=== PATIENT | male | born 1970 | race Caucasian/White ===

== ENCOUNTER 2016-11-23 14:04 | Emergency (ER) | payer SELFPAY ==
[2016-11-23] MEDS ORDERED: NORCO 10/325 PO ONE (17:01)
[2016-11-23] MEDS ORDERED: XYLOCAINE 1% 20 mL INFILTRATI ONE (17:02)
[2016-11-23] MEDS ORDERED: NACL 0.9% 500 ML IR ONE (17:10)
--- NOTE | 2016-11-23 18:04 | XRay Report ---
FINAL REPORT EXAM: XR FINGER(S) 2+V LT HISTORY: laceration TECHNIQUE: Left 1st finger three views PRIORS: None. FINDINGS: There is acute traumatic intra-articular comminuted fracture through the distal aspect middle phalanx 2nd digit with displacement of small fracture fragments. There also fracture through the adjacent base of the distal phalanx with intra-articular extension. There is some lucency seen through the distal aspect of the proximal phalanx of the thumb which may reflect overlap of bony structures. Please correlate clinically. This is only seen on the AP view. IMPRESSION: Acute traumatic intra-articular fracture through the base of the distal phalanx 2nd digit and the distal aspect of the middle phalanx with displaced fragments Lucency seen on the AP view distal aspect of the proximal phalanx of the thumb. May reflect overlap of bony structures. Please correlate with any suspicious clinical findings.
[2016-11-23] MEDS ORDERED: TRIPLE ANTIBIOTIC TP ONE (18:51)
[2016-11-23 22:33] VITALS: BP 122/88
--- NOTE | 2016-11-24 11:07 | Emergency Department Report ---
Entered by SUSAN PETERSEN, acting as scribe for RAYNA SAINI PA. 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 Patient reports he was remodeling a house when a circular saw cut his left finger. Patient reports active bleeding, but denies fever, chills, dizziness, chest pain, SOB, numbness or tingling to extremity. Patient reports pain to extremity with movement. Patient used a bandage PSYCHIATRIC AIDE. Patient is UTD on tetanus shot. -: Sudden, This afternoon Location: other (left index finger) Extremity Location: Left: Hand (left index finger) Place: outdoors Patient Tetanus UTD: Yes (last 3 years) Context: accidental, sharp object use Associated Symptoms: pain. denies: loss of feeling/numbness, suspect foreign body present, unable to move injured part, weakness followed by dizziness, nausea/vomiting, fever Treatments Prior to Arrival: bandage - Related Data Previous Rx's Medication Instructions Recorded Last Taken Type Cephalexin [Keflex] 500 mg PO Q12HR #14 cap 11/23/16 Unknown Rx Ibuprofen [Motrin] 800 mg PO Q8HR #21 tablet 11/23/16 Unknown Rx Allergies Allergy/AdvReac Type Severity Reaction Status Date / Time No Known Allergies Allergy Unverified 11/23/16 14:09 ED Review of Systems Comment: All other systems reviewed and negative Constitutional: denies: chills, fever, weakness Eyes: denies: eye pain, eye discharge, vision change ENT: denies: ear pain, throat pain Respiratory: denies: cough, shortness of breath, wheezing Cardiovascular: denies: chest pain, palpitations Endocrine: no symptoms reported Gastrointestinal: denies: abdominal pain, nausea, vomiting, diarrhea Genitourinary: denies: urgency, dysuria Musculoskeletal: denies: back pain, joint swelling, arthralgia Skin: other (laceration to left index finger). denies: rash, lesions Neurological: denies: headache, weakness, numbness, paresthesias, confusion, abnormal gait, vertigo Psychiatric: denies: anxiety, depression Hematological/Lymphatic: denies: easy bleeding, easy bruising ED Past Medical Hx - Past Medical History Previous Medical History?: No - Surgical History Past Surgical History?: No - Social History Smoking Status: Never Smoker Substance Use Type: None - Medications Home Medications: Home Medications Medication Instructions Recorded Confirmed Last Taken Type Cephalexin [Keflex] 500 mg PO Q12HR #14 cap 11/23/16 Unknown Rx Ibuprofen [Motrin] 800 mg PO Q8HR #21 tablet 11/23/16 Unknown Rx ED Physical Exam - General Limitations: Language Barrier General appearance: alert, in no apparent distress - Head Head exam: Present: atraumatic, normocephalic - Eye Eye exam: Present: normal appearance - ENT ENT exam: Present: mucous membranes moist - Neck Neck exam: Present: normal inspection, full ROM. Absent: tenderness - Respiratory Respiratory exam: Present: normal lung sounds bilaterally. Absent: respiratory distress, wheezes, rales, rhonchi, stridor - Cardiovascular Cardiovascular Exam: Present: regular rate, normal rhythm, normal heart sounds - GI/Abdominal GI/Abdominal exam: Present: soft, normal bowel sounds. Absent: distended, tenderness, guarding, rebound, rigid - Rectal Rectal exam: Present: deferred - Extremities Exam Extremities exam: Present: normal inspection, full ROM - Back Exam Back exam: Present: normal inspection, full ROM - Neurological Exam Neurological exam: Present: alert, oriented X3, normal gait - Psychiatric Psychiatric exam: Present: normal affect, normal mood - Skin Skin exam: Present: warm, dry, normal color, other (left distal index finger laceration to dorsal and palmar side). Absent: rash ED Course Vital Signs 11/23/16 11/23/16 14:09 19:35 Temperature 97.6 F Pulse Rate 79 66 Respiratory 18 18 Rate Blood Pressure 141/90 Blood Pressure 122/88 [Left] O2 Sat by Pulse 99 99 Oximetry - Laceration /Wound Repair Left Palm Finger Wound Location: upper extremity (left dorsal and palmar surface of index finger) Wound Length (cm): 3 Wound's Depth, Shape: superficial Wound Explored: clean Irrigated w/ Saline (ccs): 100 Betadine Prep?: Yes Anesthesia: 1% Lidocaine Volume Anesthetic (ccs): 10 Wound Debrided: minimal Wound Repaired With: sutures Suture Size/Type: 4:0, proline Number of Sutures: 7 Layer Closure?: No Sterile Dressing Applied?: Yes Progress: patient tolerated procedure well. bleeding well controlled ED Medical Decision Making - Radiology Data Radiology results: report reviewed XR left finger Acute traumatic intra articular fracture through the base of the distal phalanx 2nd digit and the distal aspect of the middle phalanx with displaced fragments. - Medical Decision Making 46 year old male presents to ED with laceration to distal 2nd left finger. patient has tolerated laceration repair well. patient will be placed on PO antibiotics and understands and agrees to return to ED within 7-10 days for suture removal. patient understands and agrees to follow up with Dr. Mulligan on saturday for fracture. patient has splint applied to 2nd digit. ED Disposition Clinical Impression: Laceration of finger Qualifiers: Encounter type: initial encounter Finger: index finger Damage to nail status: without damage Foreign body presence: without foreign body Laterality: left Qualified Code(s): S61.211A - Laceration without foreign body of left index finger without damage to nail, initial encounter Disposition: - TO HOME OR SELFCARE Is pt being admited?: No Does the pt Need Aspirin: No Condition: Stable Instructions: Suture Care (ED), Finger Laceration (ED) Additional Instructions: Please return to ED within 7-10 days for suture removal and follow up with Dr. mulligan on Saturday11/26/2016 Prescriptions: Cephalexin [Keflex] 500 mg PO Q12HR #14 cap Ibuprofen [Motrin] 800 mg PO Q8HR #21 tablet Referrals: ADAM MULLIGAN MD [Staff Physician] - 2-3 Days This documentation as recorded by the NICOLA pritchett PEARL,accurately reflects the service I personally performed and the decisions made by ,RAYNA SAINI PA.
== END 2016-11-23 19:39 | disposition home or self-care (01) ==
LOC: ED 14:04
DX: S61.211A Laceration without foreign body of left index finger without damage to nail, initial encounter (principal); W45.8XXA Other foreign body or object entering through skin, initial encounter; Y93.9 Activity, unspecified; Y92.9 Unspecified place or not applicable; Y99.9 Unspecified external cause status